=== PATIENT | female | born 1980 | race Caucasian/White ===

== ENCOUNTER 2019-01-13 21:40 | Emergency (ER) | payer SELFPAY ==
[2019-01-13] MEDS ORDERED: HYDROCODONE/ACETAMINOPHEN 5-325 MG (6 TAB/ER DISP) PO PRN (23:11)
[2019-01-13] MEDS ORDERED: IBUPROFEN 800 MG TABLET PO ONE (23:11)
[2019-01-13] MEDS ORDERED: LIDOCAINE 5% (700 MG) TRANSDERMAL ADH..PATCH TP ONE (23:12)
--- NOTE | 2019-01-13 23:16 | ER Document Report ---
HPI - HPI Patient complains to provider of: Low back pain Time Seen by Provider: 01/13/19 23:00 Onset: Last week Onset/Duration: Persistent Quality of pain: Achy Pain Level: 4 Context: Patient presents complaining of lower back pain for the past week. Patient denies any urinary frequency, dysuria or incontinence. Patient denies any fever. Patient denies any traumatic injury. Patient reports that pain will occasionally radiate to the right lower extremity otherwise not doing so at this time. Associated Symptoms: Other - Low back pain. denies: Fever Exacerbated by: Movement Relieved by: Denies Similar symptoms previously: No Recently seen / treated by doctor: No - ROS ROS below otherwise negative: Yes Systems Reviewed and Negative: Yes All other systems reviewed and negative - CONSTITUTIONAL Constitutional: DENIES: Fever, Chills - NEURO Neurology: DENIES: Weakness - RESPIRATORY Respiratory: DENIES: Trouble Breathing, Coughing - GASTROINTESTINAL Gastrointestinal: DENIES: Abdominal Pain, Nausea, Patient vomiting - URINARY Urinary: DENIES: Dysuria, Urgency, Frequency - REPRODUCTIVE Reproductive: DENIES: : - MUSCULOSKELETAL Musculoskeletal: REPORTS: Back Pain. DENIES: Extremity pain, Neck Pain - DERM Skin Color: Normal Skin Problems: None Past Medical History - General Information source: Patient - Social History Smoking Status: Current Every Day Smoker Chew tobacco use (# tins/day): No Smoking Education Provided: Yes Frequency of alcohol use: None Drug Abuse: None Occupation: airport shuttle driver Lives with: Family Family History: Reviewed & Not Pertinent Patient has suicidal ideation: No Patient has homicidal ideation: No Renal/ Medical History: Denies: Hx Peritoneal Dialysis Psychiatric Medical History: Reports: Hx Anxiety, Hx Depression Past Surgical History: Reports: Hx Section, Hx Hysterectomy, Hx Orthopedic Surgery Vertical Provider Document - CONSTITUTIONAL Agree With Documented VS: Yes Exam Limitations: No Limitations General Appearance: WD/WN, No Apparent Distress Notes: PHYSICAL EXAMINATION: GENERAL: Well-appearing, well-nourished and in no acute distress. HEAD: Atraumatic, normocephalic. EYES: sclera clear, anicteric, conjunctiva are normal. ENT: nares patent, Moist mucous membranes. NECK: Normal range of motion, supple no lymphadenopathy LUNGS: respirations unlabored HEART: Regular rate and rhythm without murmurs EXTREMITIES: Normal range of motion, no pitting or edema. No cyanosis. Gait normal, pt ambulates without difficulty BACK: Lower lumbar paraspinal tenderness, no midline tenderness, no deformities or step-offs. No CVA tenderness. NEUROLOGICAL: Cranial nerves grossly intact. Normal speech, normal gait. No s addle anesthesia. PSYCH: Normal mood, normal affect. SKIN: Warm, Dry, normal turgor, no rashes or lesions noted. - INFECTION CONTROL TRAVEL OUTSIDE OF THE [place] IN LAST 30 DAYS: No Course - Re-evaluation Re-evalutation: 01/13/19 23:15 The patient presents with low back pain without signs of spinal cord compression, cauda equina syndrome, infection, aneurysm, or other serious etiology. The patient is neurologically intact. Given the extremely risk of these diagnoses further testing and evaluation for these possibilities does not appear to be indicated at this time. Patient has been instructed to return if the symptoms worsen or change in any way. Discharge - Discharge Clinical Impression: Low back pain Qualifiers: Chronicity: unspecified Back pain laterality: bilateral Sciatica presence: without sciatica Qualified Code(s): M54.5 - Low back pain Condition: Stable Disposition: HOME, SELF-CARE Instructions: Ice Packs ([facility]), Low Back Pain ([facility]), Oral Narcotic Medication ([facility]) Additional Instructions: Return immediately for any new or worsening symptoms Followup with your primary care provider, call tomorrow to make a followup appointment Prescriptions: Metaxalone [Skelaxin 800 mg Tablet] 800 mg PO ASDIR PRN #15 tablet PRN Reason: Naproxen [Naprosyn 250 Nmg Tablet] 1 tab PO BID #14 tablet Forms: Smoking Cessation Education Referrals: [facility] [Provider Group] - Follow up as needed [facility] [Provider Group] - Follow up as needed
[2019-01-13 23:34] VITALS: BP 138/93
== END 2019-01-13 23:34 | disposition home or self-care (01) ==
LOC: ER 21:40
DX: M54.5 Low back pain (principal); F17.200 Nicotine dependence, unspecified, uncomplicated; Z90.710 Acquired absence of both cervix and uterus
CPT/HCPCS: 99283

== ENCOUNTER 2019-11-19 21:37 | Emergency (ER) | payer SELFPAY ==
[2019-11-20] MEDS ORDERED: ACETAMINOPHEN 325 MG TABLET PO ONE (00:57)
--- NOTE | 2019-11-20 01:30 | ER Document Report ---
ED General - General Chief Complaint: Hand Injury Stated Complaint: LEFT HAND PAIN Time Seen by Provider: 11/20/19 01:07 Mode of Arrival: Ambulatory Information source: Patient TRAVEL OUTSIDE OF THE [place] IN LAST 30 DAYS: No - HPI Onset: This morning Onset/Duration: Sudden Quality of pain: Cramping Severity: Moderate Pain Level: 2 Context: Patient "has had her right hand operated on for carpal tunnel syndrome and she feels like the left hand now is having the same symptoms. She works as a reefer truck driver and unfortunately cannot work with her left hand with carpal tunnel symptoms." Associated symptoms: None - Related Data Allergies/Adverse Reactions: Penicillins Allergy (Verified 01/13/19 21:49) Sulfa (Sulfonamide Antibiotics) Allergy (Verified 01/13/19 21:49) Home Medications: buspierone 10 mg bid. prozac 20 mg qday. hydroxyzine 10 mg prn panic attack. prazosin 2mg qday Past Medical History - General Information source: Patient - Social History Smoking Status: Current Every Day Smoker Cigarette use (# per day): Yes Chew tobacco use (# tins/day): No Smoking Education Provided: Yes Drug Abuse: None Family History: Reviewed & Not Pertinent Patient has suicidal ideation: No Patient has homicidal ideation: No Renal/ Medical History: Denies: Hx Peritoneal Dialysis Psychiatric Medical History: Reports: Hx Anxiety, Hx Depression Past Surgical History: Reports: Hx Section, Hx Hysterectomy, Hx Orthopedic Surgery Review of Systems - Review of Systems Constitutional: No symptoms reported EENT: No symptoms reported Cardiovascular: No symptoms reported Respiratory: No symptoms reported Gastrointestinal: No symptoms reported Genitourinary: No symptoms reported Female Genitourinary: No symptoms reported Musculoskeletal: Joint swelling, Muscle pain, Other - Hand pain of left side only; her right hand with status post carpal tunnel surgery scar Skin: No symptoms reported Hematologic/Lymphatic: No symptoms reported Neurological/Psychological: No symptoms reported Physical Exam - Vital signs Vitals: Temp Pulse Resp BP Pulse Ox 99.0 F 74 16 134/88 H 100 11/19/19 22:05 11/19/19 22:05 11/19/19 22:05 11/19/19 22:05 11/19/19 22:05 - Extremities General upper extremity: Tender General lower extremity: Normal inspection Shoulder: Normal Arm: Normal Elbow: Normal Forearm: Normal Wrist: Tender - On left side only right side within normal limits Hand: Tender - On left side only right hand within normal limits Hip: Normal Thigh: Normal Knee: Normal Ankle: Normal Foot: Normal Course - Vital Signs Vital signs: Temp Pulse Resp BP Pulse Ox 99.0 F 74 16 134/88 H 100 11/19/19 22:05 11/19/19 22:05 11/19/19 22:05 11/19/19 22:05 11/19/19 22:05 - Diagnostic Test Radiology reviewed: Image reviewed Critical Care Note - Critical Care Note Total time excluding time spent on procedures (mins): 30 Discharge - Discharge Clinical Impression: Carpal tunnel syndrome on left Condition: Good Disposition: HOME, SELF-CARE Additional Instructions: Follow-up with orthopedics of choice return to ER as needed avoid using left hand until seen by orthopedics take medications as directed Prescriptions: Indomethacin [Indocin 25 Mg Capsule] 25 mg PO BID #14 capsule Forms: Return to Work
--- NOTE | 2019-11-20 01:51 | RADIOLOGY REPORT (SQ) ---
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 COMPARISON: None. FINDINGS: No acute fracture or dislocation is seen. The joint spaces are preserved. No radiopaque foreign body is identified. Mild soft tissue swelling. IMPRESSION: No acute fracture or malalignment.
[2019-11-20 01:53] VITALS: BP 128/87
== END 2019-11-20 01:52 | disposition home or self-care (01) ==
LOC: ER 21:37
DX: G56.02 Carpal tunnel syndrome, left upper limb (principal); M79.642 Pain in left hand; Z79.899 Other long term (current) drug therapy; F17.210 Nicotine dependence, cigarettes, uncomplicated
CPT/HCPCS: 99285